=== PATIENT | female | born 1990 | race African-American/Black ===

== ENCOUNTER 2017-11-20 13:39 | Emergency (ER) | payer MEDICAID ==
[~2017-11-20] VITALS: Ht 162.6 cm; Wt 95.0 kg
[2017-11-20 14:59] LABS: CLARITY URINE CLOUDY (CLEAR); COLOR URINE DARK YELLOW (YELLOW); KETONES URINE NEGATIVE (NEGATIVE); LEUKOCYTE ESTERASE URINE 3+ (NEGATIVE); NITRITE URINE NEGATIVE (NEGATIVE); OCCULT BLOOD URINE 3+ (NEGATIVE); PH URINE 5.5 (4.5-8.0); PROTEIN URINE 1+ (NEGATIVE); SPECIFIC GRAVITY URINE 1.027 (1.005-1.030)
[2017-11-20 15:04] LABS: HEMATOCRIT. 36.8 % (36.0-48.0); MEAN CORPUSCULAR HEMOGLOBIN 23.9 pg (28.0-32.0); MEAN CORPUSCULAR VOLUME 73.5 fL (81.0-99.0); MEAN PLATELET VOLUME 8.8 fl (7.4-10.4); PLATELET 238 x1000/uL (130-400)
[2017-11-20 15:11] LABS: CHLORIDE 101 mEq/L (98-107)
[2017-11-20] MEDS ORDERED: IOHEXOL-350 100 ML BOTTLE ONE (16:41)
[2017-11-20 17:13] LABS: PLATELET ESTIMATE NORMAL
[2017-11-20 18:04] VITALS: BP 122/66
== END 2017-11-20 18:05 | disposition home or self-care (01) ==
LOC: ER 13:39
DX: R07.89 Other chest pain (principal); R11.2 Nausea with vomiting, unspecified; R06.02 Shortness of breath; Z98.890 Other specified postprocedural states; R05 Cough; R42 Dizziness and giddiness; R68.83 Chills (without fever)
CPT/HCPCS: 36415; 71045; 71275; 80053; 81003; 81025; 83690; 84484; 85025; 85379; 93005; 99285; Q9967; Z7610